=== PATIENT | female | born 1990 | race Two or more races ===

== ENCOUNTER 2021-10-07 13:34 | Outpatient (REF) | payer OTHER, SELFPAY ==
[2021-10-07 14:22] LABS: COVID-19 Test Negative (Negative)
== END 2021-10-07 13:35 | disposition home or self-care (01) ==
LOC: HO.LAB 13:34
PROVIDERS: Visit Provider Internal Medicine
DX: Z20.822 Contact with and (suspected) exposure to COVID-19 (principal)
CPT/HCPCS: 87635; C9803

== ENCOUNTER 2021-10-15 13:36 | Outpatient (REF) | payer OTHER, SELFPAY ==
[2021-10-15 14:24] LABS: COVID-19 Test Negative (Negative); IDNOW Serial# 16C4AD1C
== END 2021-10-15 13:37 | disposition home or self-care (01) ==
LOC: HO.LAB 13:36
PROVIDERS: Visit Provider Internal Medicine
DX: Z20.822 Contact with and (suspected) exposure to COVID-19 (principal)
CPT/HCPCS: 87635; C9803